=== PATIENT | male | born 1935 | race Caucasian/White ===

== ENCOUNTER 2017-02-09 09:35 | Outpatient (CLI) | payer MEDICARE, OTHER | END 2017-02-09 09:36 | disposition home or self-care (01) | DX: M17.0 Bilateral primary osteoarthritis of knee (principal) ==

== ENCOUNTER 2017-02-26 11:28 | Outpatient (CLI) | payer MEDICARE, OTHER | END 2017-02-26 11:29 | disposition home or self-care (01) | DX: R74.8 Abnormal levels of other serum enzymes (principal); Z90.49 Acquired absence of other specified parts of digestive tract ==

== ENCOUNTER 2019-09-08 07:44 | Outpatient (CLI) | payer MEDICARE, OTHER ==
--- NOTE | 2019-09-08 16:37 | Ultrasound Report ---
Reason: BILATERAL ANKLE AND FOOT PAIN Procedure Date: 09/08/2019 Accession Number: [id number] / [id number] Procedure: US - Duplex Ext Veins Bilateral CPT Code: Final Report FULL RESULT: EXAM: BILATERAL LOWER EXTREMITY VENOUS ULTRASOUND EXAM DATE: 09/08/2019 08:45 AM. CLINICAL HISTORY: BILATERAL ANKLE AND FOOT PAIN. COMPARISON: None. TECHNIQUE: Real-time sonographic vascular imaging was performed by the ornamental iron worker through the lower extremities utilizing both color-flow and Doppler spectral analysis. Multiple telemarketing representative static images were saved for review. FINDINGS: Right: Common Femoral Vein (CFV): Normal. CFV-GSV Junction: Normal. Profunda Femoral Vein (PFV): Normal. Femoral Vein (FV) Prox: Normal. Femoral Vein (FV) Mid: Normal. Femoral Vein (FV) Dist: Normal. Popliteal Vein: Normal. Posterior Tibial Veins: Normal. Peroneal Veins: Normal. Left: Common Femoral Vein (CFV): Normal. CFV-GSV Junction: Normal. Profunda Femoral Vein (PFV): Normal. Femoral Vein (FV) Prox: Normal. Femoral Vein (FV) Mid: Normal. Femoral Vein (FV) Dist: Normal. Popliteal Vein: Normal. Posterior Tibial Veins: Normal. Peroneal Veins: Normal. Other: None. IMPRESSION: No evidence for deep venous thrombosis bilaterally. RADIA
--- NOTE | 2019-09-09 09:27 | Ultrasound Report ---
Reason: BILATERAL ANKLE AND FOOT PAIN Procedure Date: 09/08/2019 Accession Number: [id number] / [id number] Procedure: US - Duplex Lwr Ext Arterial Bilat CPT Code: Final Report FULL RESULT: EXAM: BILATERAL LOWER EXTREMITY ARTERIAL DOPPLER ULTRASOUND EXAM DATE: 09/08/2019 09:26 AM. CLINICAL HISTORY: Bilateral ankle and foot pain. COMPARISON: None. TECHNIQUE: Real-time sonographic vascular imaging was performed by the chemist instrumentation, utilizing color-flow, Doppler flow, and spectral analysis. Multiple inside sales account representative static images were saved for review. FINDINGS: Bilateral lower extremity arterial duplex examination is performed which demonstrates preserved brisk systolic arterial upstrokes through all sampled arteries in both lower extremity arterial systems demonstrates three-vessel patency to the ankle with preserved dorsalis pedis vascularity. Vessels are patent by color Doppler. No subjectively significant focal stenosis is visualized on grayscale. The following arteries are interrogated with peak systolic velocities in centimeters per second as below. Right Lower Extremity: INSULATION PROFESSIONAL: PSV 116 cm/sec. PSFA: PSV 102 cm/sec. MSFA: PSV 72 cm/sec. DSFA: PSV 94 cm/sec. PFA: PSV 53 cm/sec. POP: PSV 72 cm/sec. ROCK: PSV 58 cm/sec. FLOUR BLENDER: PSV 46 cm/sec. ANATOLIY: PSV 33 cm/sec. DPA: PSV 18 cm/sec. Left Lower Extremity: INSULATION PROFESSIONAL: PSV 140 cm/sec. PSFA: PSV 87 cm/sec. MSFA: PSV 70 cm/sec. DSFA: PSV 70 cm/sec. PFA: PSV 57 cm/sec. POP: PSV 101 cm/sec. ROCK: PSV 53 cm/sec. FLOUR BLENDER: PSV 57 cm/sec. ANATOLIY: PSV 44 cm/sec. DPA: PSV 17 cm/sec. IMPRESSION: Normal lower extremity arterial duplex. RADIA
== END 2019-09-08 07:45 | disposition home or self-care (01) ==
LOC: DI 07:44
PROVIDERS: ATTEND Internal Medicine
DX: M25.571 Pain in right ankle and joints of right foot (principal); M25.572 Pain in left ankle and joints of left foot
CPT/HCPCS: 93925; 93970

== ENCOUNTER 2019-11-05 09:01 | Outpatient (CLI) | payer MEDICARE, OTHER | END 2019-11-05 23:59 | disposition home or self-care (01) | LOC: LAB.N 09:01 | PROVIDERS: ATTEND Internal Medicine | DX: E87.5 Hyperkalemia (principal); Z79.899 Other long term (current) drug therapy | CPT/HCPCS: 36415; 84132 ==

== ENCOUNTER 2020-09-15 12:30 | Outpatient (CLI) | payer MEDICARE, OTHER ==
--- NOTE | 2020-09-15 13:24 | CT Report ---
PROCEDURE: HEAD WO INDICATIONS: ILLNESS, GAIT DEVIATION TECHNIQUE: Noncontrast 4.5 mm thick angled axial sections acquired from the foramen magnum to the vertex. For r adiation dose reduction, the following was used: automated exposure control, adjustment of mA and/or kV according to patient size. COMPARISON: None. FINDINGS: Image quality: Excellent. CSF spaces: Basal cisterns are patent. Mild bifrontal chronic subdural hygromas are seen. Ventricles are normal in size and shape. Brain: No midline shift. No intracranial masses or hemorrhage. Martines-white matter interface is norm al. Skull and face: Calvarium and visualized facial bones are intact, without suspicious lesions. Sinuses: Visualized sinuses and mastoids are clear. IMPRESSION: No imaging explanation is found for the patient's presenting symptoms. Unremarkable intracranial study for age, with note made of age-appropriate brain parenchymal volume l oss and chronic small vessel ischemic change. 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 Reviewed by: Rangel Pacheco MD on 09/15/2020 12:22 PM [facility] Approved by: Rangel Pacheco MD on 09/15/2020 12:22 PM [facility] Station ID: [id number]
== END 2020-09-15 12:31 | disposition home or self-care (01) ==
LOC: DI 12:30
PROVIDERS: ATTEND Internal Medicine
DX: G96.08 Other cranial cerebrospinal fluid leak (principal)
CPT/HCPCS: 70450

== ENCOUNTER 2020-11-02 11:06 | Emergency (ER) | payer MEDICARE, OTHER ==
[2020-11-02] MEDS ORDERED: methocarbamoL 500 MG TABLET PO STA (11:44)
[2020-11-02] MEDS ORDERED: HYDROmorphone 1 MG/ML CARPUJECT IM STA (11:44)
--- NOTE | 2020-11-02 11:47 | ED Physician Documentation ---
History of Present Illness - Stated complaint Stated Complaint: GLF/RIB PX - Chief complaint Chief Complaint: Trauma Ch/Bk - Additonal information Additional information: 85-year-old male presents the emergency department with acute low back pain. He reports that he fell backwards striking the small of his back on the tongue of a trailer hitch 2 days ago. He did not strike his head or lose consciousness. No anticoagulation. Since then he has had pain across his lower back right greater than left. He sometimes feels a shooting pain going down the right leg. He has been able to ambulate but it is exceedingly difficult. He has taken ibuprofen and Tylenol without relief of pain. He denies saddle anesthesia bowel or bladder incontinence or incomplete emptying of bladder. No history of back surgery. No fevers. No loss of motor strength. Review of Systems Constitutional: reports: Reviewed and negative Ears: reports: Reviewed and negative Nose: reports: Reviewed and negative Cardiac: reports: Reviewed and negative Respiratory: reports: Reviewed and negative GI: reports: Reviewed and negative : reports: Reviewed and negative Skin: reports: Reviewed and negative Musculoskeletal: reports: Back pain. denies: Neck pain, Joint pain Neurologic: denies: Focal weakness, Numbness, Syncope, Headache Endocrine: denies: Polydypsia, Polyuria PD PAST MEDICAL HISTORY - Past Medical History Past Medical History: Yes Cardiovascular: Hypertension, High cholesterol Respiratory: None Neuro: None Endocrine/Autoimmune: None GI: None : None HEENT: None Psych: None Musculoskeletal: None Derm: None - Past Surgical History Past Surgical History: No General: Cholecystectomy - Present Medications Home Medications: Ambulatory Orders Medication Instructions Recorded Confirmed HYDROcod/ACETAM 5/325 [[place] 5/325] 1 - 2 ea PO Q6H PRN #10 tablet 11/02/20 Ibuprofen [Motrin] 600 mg PO Q6H PRN #20 tab 11/02/20 Methocarbamol [Robaxin-750] 750 mg PO TID PRN #30 tablet 11/02/20 - Allergies Allergies/Adverse Reactions: Allergies Allergy/AdvReac Type Severity Reaction Status Date / Time No Known Drug Allergies Allergy Verified 11/02/20 11:16 - Social History Does the pt smoke?: No Smoking Status: Never smoker Does the pt drink ETOH?: No Does the pt have substance abuse?: No - Immunizations Immunizations are current?: Yes - POLST Patient has POLST: No PD ED PE EXPANDED - General General: Alert, No acute distress - Cardiac Cardiac: Regular Rate, Regular Rhythm, Radial strong equal, Pedal strong equal, Cap refill < 2 sec - Respiratory Respiratory: Clear to ausultation [place]. No: Distress, Labored - Abdomen Abdomen: Normal Bowel sounds. No: Tender to palpation - Back Back: Soft tissue tenderness, Other (Generalized tenderness across the lower lumbar spine with right-sided paraspinous muscle tenderness. No focal bony tenderness. No swelling or ecchymosis). No: Vertebral tenderness - Derm Derm: Normal color, Warm and dry. No: Rash - Extremities Extremities: Normal, Other (motor strength 5/5 BLE; negative strength bilat). No: Deformity, Tenderness - Neuro Neuro: Alert and Oriented X 3, Confused, Disoriented Results - Vitals Vitals: Vital Signs - 24 hr 11/02/20 11:16 Temperature 36.2 C L Heart Rate 73 Respiratory 18 Rate Blood Pressure 179/92 H O2 Saturation 100 Oxygen O2 Source Room air - Rads (name of study) lumbar xr Radiology: Final report received (Degenerative disease. No fracture no acute osseous lesion) thoracic xr Radiology: Final report received (T8 compression fracture of indeterminate age which results in approximately 15% loss of normal vertebral body height.) lumbar CT Radiology: Final report received (No acute fractures are seen. Multiple levels of degenerative changes are seen) thoracic CT Radiology: Final report received (No acute fractures identified. Several levels of midthoracic anterior wedge deformity are seen without acute fractures.) PD MEDICAL DECISION MAKING - ED course Complexity details: reviewed results, re-evaluated patient, considered differential, d/w patient ED course: 85-year-old male presents to the emergency department with low back pain after a fall 2 to 3 days ago which he tripped and hit the tongue of his trailer. The exam of the back shows diffuse pain across the low back mostly on the right side. Initial x-ray suggested a possible T8 compression fracture. Therefore we proceeded to CT of the thoracic and lumbar spines. No acute fractures are identified though there is some wedge deformity of the thoracic spine. This gentleman was given Dilaudid and methocarbamol here in the emergency department. Though he has trouble sitting upright he is able to ambulate freely without any assistance. He has no red flags of back pain and feels that his pain is moderately improved here after the Dilaudid. I will recommend a short course of ibuprofen as well as methocarbamol and write a limited prescription of hydrocodone. Patient is to follow-up with his primary care provider. Emergent and worrisome return precautions discussed Departure - Departure Disposition: 01 Home, Self Care Clinical Impression: Fall from ground level Low back pain Qualifiers: Chronicity: acute Back pain laterality: right Sciatica presence: without sciatica Qualified Code(s): M54.5 - Low back pain Condition: Stable Record reviewed to determine appropriate education?: Yes Instructions: ED Low Back Pain Injury Follow-Up: Gita Aguirre MD [Primary Care Provider] - Prescriptions: Ibuprofen [Motrin] 600 mg PO Q6H PRN #20 tab PRN Reason: Pain HYDROcod/ACETAM 5/325 [[place] 5/325] 1 - 2 ea PO Q6H PRN #10 tablet PRN Reason: Pain Methocarbamol [Robaxin-750] 750 mg PO TID PRN #30 tablet PRN Reason: Spasms Comments: Jorge the x-ray of your thoracic spine suggested a possible fracture, however the CT scan does not show any findings of fracture in your thoracic or lumbar spine. I would like you to take the ibuprofen with food 2-3 times a day. For severe pain only I have prescribed a very limited amount of hydrocodone. Please be careful using this it may make you dizzy and unsafe to walk alone. I have also prescribed a small amount of methocarbamol. This is a muscle relaxer. It also can make you dizzy and weak so please be cautious using it. I do recommend that you use a warm compress on your lower back and try and be active as much as possible to reduce your pain and prevent your other muscles from getting tense and spasming. Please see your primary care provider in follow-up of this ED visit within the next week. If at any point you have numbness or tingling between your legs, cannot control your bowel or bladder function or feel that you have sudden weakness in your legs please return immediately to the ER
--- NOTE | 2020-11-02 12:33 | XRAY Report ---
PROCEDURE: Lumbar Spine 2 View INDICATIONS: Status post fall, eval for fx TECHNIQUE: 2 views of the lumbar spine were acquired. COMPARISON: None. FINDINGS: Bones: 5 [id number] vertebrae are present. There is normal bony alignment. No vertebral body compression fractures. No suspicious bony lesions. [id number] degenerative disc changes noted throughout the lumbar spine. Soft tissues: Overlying bowel gas pattern is normal. No suspicious soft tissue calcifications. IMPRESSION: 1. Multilevel degenerative disease. 2. No fracture. No acute osseous lesion. If there is continued clinical concern for pathology, then M RI should be considered for further evaluation. Reviewed by: Cheryl Barber MD, PhD on 11/02/2020 11:31 AM [facility] Approved by: Cheryl Barber MD, PhD on 11/02/2020 11:31 AM [facility] Station ID: [id number]
--- NOTE | 2020-11-02 12:38 | XRAY Report ---
PROCEDURE: Thoracic Spine 2 View INDICATIONS: Status post fall. Evaluate for fracture. TECHNIQUE: 3 views of the thoracic spine were acquired. COMPARISON: None. FINDINGS: Bones: Mild loss of height noted in the T8 vertebral body compatible with compression deformity of in determinate age. No suspicious bony lesions. 12 pairs of ribs are noted, and appear intact where vis ualized. Mild to moderate degenerative changes noted throughout the thoracic spine. Soft tissues: No paravertebral stripe thickening. IMPRESSION: T8 compression fracture of indeterminate age which results in approximately 15% loss of normal verteb ral body height. Recommend MRI of the thoracic spine for further characterization if clinically indic ated. Reviewed by: Cheryl Barber MD, PhD on 11/02/2020 11:37 AM [facility] Approved by: Cheryl Barber MD, PhD on 11/02/2020 11:37 AM [facility] Station ID: [id number]
--- NOTE | 2020-11-02 13:12 | CT Report ---
PROCEDURE: THORACIC SPINE WO INDICATIONS: t8 compression fx TECHNIQUE: Noncontrast 3 mm thick sections acquired through the region of interest in the thoracic spine. Sagit yohan and coronal reformats were then constructed. For radiation dose reduction, the following was used : automated exposure control, adjustment of mA and/or kV according to patient size. COMPARISON: Prior plain films, 11/02/2020. Correlation is also made with the accompanying lumbar CT . FINDINGS: Image quality: Excellent. Bones: Several levels of mild anterior wedge deformity can be seen within the mid thoracic spine, wit hout acute fracture lines identified. Scrutiny is given to the T8 level and no acute fracture is seen at this site. There is associated accentuated thoracic kyphosis. No significant AP alignment abnorm ality can be seen. Age-appropriate degenerative changes are seen. No suspicious sclerotic or lytic bony lesions. Cent ral spinal canal is of normal overall caliber. Soft tissues: No paravertebral masses or hematomas. Visualized posteromedial lungs appear clear. A small hiatal hernia is incidentally noted. IMPRESSION: No acute fracture is identified. Several levels of mid thoracic anterior wedge deformity are seen, without acute features. There is associated exaggerated thoracic kyphosis. Incidental note is made of: Small hiatal hernia Reviewed by: Rangel Pacheco MD on 11/02/2020 12:11 PM [facility] Approved by: Rangel Pacheco MD on 11/02/2020 12:11 PM [facility] Station ID: [id number]
--- NOTE | 2020-11-02 13:16 | CT Report ---
PROCEDURE: LUMBAR SPINE WO INDICATIONS: t 8 fx; r/o occult lumbar fx after trauma TECHNIQUE: Noncontrast 3 mm thick sections acquired from the T12 level to the sacrum. Sagittal and coronal refo rmats were constructed. For radiation dose reduction, the following was used: automated exposure co ntrol, adjustment of mA and/or kV according to patient size. COMPARISON: Correlation is made with the accompanying plain films 11/02/2020. Correlation is also mad e with the thoracic spine CT, 11/02/2020. FINDINGS: Image quality: Excellent. Bones: There is minimal dextroconvex scoliotic curvature. No significant AP alignment abnormality c an be seen. No acute vertebral body compression fractures. There is mild anterior wedge of pheresis seen of T12, with approximately 10% loss of height anteriorly. No suspicious lytic or blastic bony l esions. Central spinal caliber is of normal overall caliber. No pars defects. T12-L1: Normal in appearance. L1-L2: Moderate loss of disc height is seen. Mild vacuum disc phenomenon can be seen. Moderate dis c bulge is seen, which is eccentric to the right side. Moderate bilateral neural foraminal narrowing is seen. Mild to moderate central canal narrowing is seen. L2-L3: The disc height is well-preserved. Moderate disc bulge is seen at this level. There is a t least moderate bilateral neuroforaminal narrowing seen, left worse than right. Moderate central ca nal narrowing is seen. L3-L4: The disc height is well-preserved. At least moderate disc bulge is seen, with a central disc protrusion. There is at least moderate bilateral neuroforaminal narrowing seen. At least moderate ce ntral canal narrowing is seen, as on series 4 image 52. L4-L5: The disc height is well-preserved. Moderate disc bulge is seen, with a central disc protrusi on. There is at least moderate bilateral neuroforaminal narrowing seen. Moderate central canal narro wing is seen. L5-S1: The disc height is well-preserved. Endplate irregularity and sclerosis can be seen. Mold Maker iorly directed endplate osteophytes are seen on the right side. Vacuum disc phenomenon is seen at th is level. Moderate to severe bilateral neuroforaminal narrowing can be seen, right worse than left. Moderate facet hypertrophy is seen. Minimal central canal narrowing is seen. Soft tissues: No retroperitoneal masses or hematomas. Visualized aorta is normal in caliber. Ather osclerotic calcification is seen. IMPRESSION: No acute fractures are seen. Multiple levels of degenerative change are seen. Reviewed by: Rangel Pacheco MD on 11/02/2020 12:14 PM [facility] Approved by: Rangel Pacheco MD on 11/02/2020 12:14 PM [facility] Station ID: [id number]
[2020-11-02 13:58] VITALS: BP 178/81
== END 2020-11-02 13:58 | disposition home or self-care (01) ==
LOC: ED 11:06
DX: M54.5 Low back pain (principal); W01.198A Fall on same level from slipping, tripping and stumbling with subsequent striking against other object, initial encounter; I10 Essential (primary) hypertension
CPT/HCPCS: 72070; 72100; 72128; 72131; 96372; 99284; A9270; J1170

== ENCOUNTER 2020-12-17 13:09 | Outpatient (CLI) | payer MEDICARE, OTHER ==
--- NOTE | 2020-12-17 15:53 | Ultrasound Report ---
PROCEDURE: Duplex Lwr Ext Arterial Bilat INDICATIONS: CELLULITIS TECHNIQUE: Color and pulse Doppler interrogation was performed of both lower extremity arterial systems, with im age documentation. COMPARISON: None available. FINDINGS: Right lower extremity: Common femoral artery: 130 cm/sec, with triphasic flow. Deep femoral artery: 93 cm/sec, with triphasic flow. Proximal superficial femoral artery: 124 cm/sec, with triphasic flow. Mid superficial femoral artery: 80 cm/sec, with triphase flow. Distal superficial femoral artery: 98 cm/sec, with phasic flow. Popliteal artery: 79 cm/sec, with biphasic flow. Posterior tibial artery: 81 cm/sec, with A flow. Anterior tibial artery/dorsalis pedis: 56 cm/sec, with biphasic flow. Martines-scale imaging description: Minimal scattered plaque. Left lower extremity: Common femoral artery: 130 cm/sec, with phases flow. Deep femoral artery: 96 cm/sec, with biphasic flow. Proximal superficial femoral artery: 71 cm/sec, with biphasic flow. Mid superficial femoral artery: 86 cm/sec, with triphasic flow. Distal superficial femoral artery: 80 cm/sec, with triphasic flow. Popliteal artery: 1:30 cm/sec, with triphasic flow. Posterior tibial artery: 79 cm/sec, with biphasic flow. Anterior tibial artery/dorsalis pedis: 63 cm/sec, with biphasic flow. Martines-scale imaging description: Now scattered plaque. IMPRESSION: No hemodynamically significant lower extreme peripheral arterial stenosis. Reviewed by: PATITO Torres on 12/17/2020 3:52 PM PST Approved by: Too Suggs MD on 12/17/2020 3:52 PM PST Station ID: [id number]
== END 2020-12-17 13:10 | disposition home or self-care (01) ==
LOC: DI 13:09
PROVIDERS: ATTEND Internal Medicine
DX: L03.818 Cellulitis of other sites (principal); R26.9 Unspecified abnormalities of gait and mobility
CPT/HCPCS: 93925

== ENCOUNTER 2021-01-17 14:06 | Outpatient (CLI) | payer MEDICARE, OTHER ==
--- NOTE | 2021-01-17 15:18 | XRAY Report ---
PROCEDURE: Knee 3 View RT INDICATIONS: knee pain TECHNIQUE: 3 views of the right knee(s) were acquired. COMPARISON: None. FINDINGS: Bones: No fractures or dislocations. No suspicious bony lesions. Moderate tricompartment periartic ular osteophyte formation. Soft tissues: No joint effusion. No suspicious soft tissue calcifications. IMPRESSION: Osteoarthritis. No acute fracture. No osseous lesion. If symptoms and/or clinical suspic ion for pathology continue, further assessment with repeat plain films, or advanced imaging (e.g., CT , MRI, or bone scan) is recommended for further assessment. Reviewed by: Emperatriz Nash MD on 01/17/2021 3:16 PM PDT Approved by: Emperatriz Nash MD on 01/17/2021 3:16 PM PDT Station ID: [id number]
== END 2021-01-17 14:07 | disposition home or self-care (01) ==
LOC: DI 14:06
PROVIDERS: ATTEND Internal Medicine
DX: M25.561 Pain in right knee (principal); M17.11 Unilateral primary osteoarthritis, right knee

== ENCOUNTER 2024-03-13 15:33 | Outpatient (CLI) | payer MEDICARE, OTHER ==
--- NOTE | 2024-03-13 16:13 | CT Report ---
PROCEDURE: Head WO INDICATIONS: AMNESTIC DISORDER TECHNIQUE: Noncontrast 4.5 mm thick angled axial sections acquired from the foramen magnum to the vertex. For r adiation dose reduction, the following was used: automated exposure control, adjustment of mA and/or kV according to patient size. COMPARISON: 09/15/2020 FINDINGS: Image quality: Excellent. CSF spaces: Basal cisterns are patent. No extra-axial fluid collections. Ventricles are normal in size and shape. Brain: No midline shift. No intracranial masses or hemorrhage. Age-related global volume loss and chronic microvascular ischemic changes. Intracranial atherosclerotic vascular calcifications. Martines-w luda matter interface is normal. Skull and face: Calvarium and visualized facial bones are intact, without suspicious lesions. Sinuses: Visualized sinuses and mastoids are clear. IMPRESSION: 1.No acute intracranial pathology. No cause for patient's symptoms identified. 2.There is age-appropriate global volume loss and chronic microvascular ischemic changes. Reviewed by: Juan M Boothe MD on 03/13/2024 4:11 PM PDT Approved by: Juan M Boothe MD on 03/13/2024 4:11 PM PDT Station ID: [id number]
== END 2024-03-13 15:34 | disposition home or self-care (01) ==
LOC: DI 15:33
PROVIDERS: ATTEND Internal Medicine
DX: F04 Amnestic disorder due to known physiological condition (principal)